=== PATIENT | female | born 1950 | race Caucasian/White ===

== ENCOUNTER → 2017-01-21 | Outpatient (CLI) | payer MEDICARE, MEDICAID ==
[~2017-01-21] MED LIST: ATIVAN GENERIC0.5 MG PO; CHEWABLE ASPIRI81 MG PO; GABAPENTIN300 MG PO; GLIMEPIRIDE 2MG2 MG PO; LISINOPRIL 5MG T5 MG PO; METFORMIN500 MG PO
--- NOTE | 2017-01-21 12:16 | RADIOLOGY REPORT PS360 ---
HIP RT 2-3V W/PELVIS IF PERFOR HISTORY: RT HIP PAIN ORDERING PHYSICIAN: Shree Webster MD PATIENT AGE: 66 years COMPARISON: None FINDINGS: Moderate osteoarthritic changes involve the right hip with decrease in joint space, osteophyte formation, and osteosclerosis. No acute fracture or dislocation. Generalized vascular calcification. IMPRESSION: Moderate osteoarthritic change of the right hip
== END ==
LOC: RAD 08:57
DX: M25.551 Pain in right hip (principal)